=== PATIENT | female | born 1975 | race Two or more races ===

== ENCOUNTER → 2017-11-16 15:16 | Outpatient (CLI) | payer OTHER ==
[~2017-11-16 15:16] MED LIST: CORTISPORIN EAR10 M1 OT; FLEXERIL 10 MG PO; VOLTAREM 50MG; VOLTAREM 50MG PO
== END | disposition home or self-care (01) ==
LOC: RAD 15:16
DX: M54.12 Radiculopathy, cervical region (principal)

== ENCOUNTER 2017-12-16 08:50 | Outpatient (CLI) | payer OTHER | END 2017-12-16 15:36 | disposition home or self-care (01) | LOC: MAMO-SONO 08:50 | DX: N60.11 Diffuse cystic mastopathy of right breast (principal); N60.12 Diffuse cystic mastopathy of left breast; N64.59 Other signs and symptoms in breast; Z12.31 Encounter for screening mammogram for malignant neoplasm of breast; D25.9 Leiomyoma of uterus, unspecified ==

== ENCOUNTER 2019-01-08 10:33 | Outpatient (CLI) | payer OTHER | END 2019-01-08 11:02 | disposition home or self-care (01) | LOC: LAB 10:33 | DX: J02.8 Acute pharyngitis due to other specified organisms (principal); Z11.3 Encounter for screening for infections with a predominantly sexual mode of transmission ==

== ENCOUNTER 2019-02-28 16:08 | Outpatient (CLI) | payer OTHER | END 2019-02-28 16:14 | disposition home or self-care (01) | LOC: RAD 16:08 | DX: M25.512 Pain in left shoulder (principal) ==

== ENCOUNTER 2019-03-13 16:39 | Outpatient (CLI) | payer OTHER | END 2019-03-13 16:47 | disposition home or self-care (01) | LOC: LAB 16:39 | DX: J11.1 Influenza due to unidentified influenza virus with other respiratory manifestations (principal); B34.8 Other viral infections of unspecified site; M26.629 Arthralgia of temporomandibular joint, unspecified side; A49.3 Mycoplasma infection, unspecified site; A92.0 Chikungunya virus disease ==

== ENCOUNTER → 2019-04-23 | Outpatient (CLI) | payer OTHER | END | disposition home or self-care (01) | LOC: RAD 16:21 | DX: M79.672 Pain in left foot (principal) ==

== ENCOUNTER 2019-07-23 14:47 | Outpatient (CLI) | payer OTHER | END 2019-07-23 14:50 | disposition home or self-care (01) | LOC: RAD 14:47 | DX: M25.512 Pain in left shoulder (principal); M54.2 Cervicalgia; M62.830 Muscle spasm of back; M54.6 Pain in thoracic spine ==

== ENCOUNTER 2019-11-16 13:27 | Outpatient (CLI) | payer OTHER | END 2019-11-16 13:32 | disposition home or self-care (01) | LOC: LAB 13:27 | DX: J11.1 Influenza due to unidentified influenza virus with other respiratory manifestations (principal) ==

== ENCOUNTER 2020-04-25 06:38 | Outpatient (CLI) | payer OTHER | END 2020-04-25 06:44 | disposition home or self-care (01) | LOC: LAB 06:38 | PROVIDERS: ATTEND General Practice | DX: Z00.8 Encounter for other general examination (principal); Z13.6 Encounter for screening for cardiovascular disorders; Z12.11 Encounter for screening for malignant neoplasm of colon; R53.81 Other malaise; K29.00 Acute gastritis without bleeding ==

== ENCOUNTER 2020-07-30 13:18 | Outpatient (CLI) | payer OTHER | END 2020-07-30 13:28 | disposition home or self-care (01) | LOC: MAMO-SONO 13:18 | PROVIDERS: ATTEND Specialist | DX: Z12.31 Encounter for screening mammogram for malignant neoplasm of breast (principal); N64.59 Other signs and symptoms in breast ==

== ENCOUNTER 2020-10-07 13:36 | Outpatient (CLI) | payer OTHER | END 2020-10-07 13:37 | disposition home or self-care (01) | LOC: PPH VACUNA 13:36 | DX: Z23 Encounter for immunization (principal) ==

== ENCOUNTER 2020-10-08 06:14 | Outpatient (CLI) | payer OTHER | END 2020-10-08 07:07 | disposition home or self-care (01) | LOC: LAB 06:14 | PROVIDERS: ATTEND Internal Medicine Endocrinology, Diabetes & Metabolism | DX: N39.0 Urinary tract infection, site not specified (principal); E11.65 Type 2 diabetes mellitus with hyperglycemia; E55.9 Vitamin D deficiency, unspecified; E78.2 Mixed hyperlipidemia; D64.89 Other specified anemias ==

== ENCOUNTER 2021-01-07 07:20 | Outpatient (CLI) | payer OTHER | END 2021-01-07 07:24 | disposition home or self-care (01) | LOC: LAB 07:20 | PROVIDERS: ATTEND Internal Medicine Endocrinology, Diabetes & Metabolism | DX: E11.65 Type 2 diabetes mellitus with hyperglycemia (principal); E55.9 Vitamin D deficiency, unspecified; D64.89 Other specified anemias ==